=== PATIENT | male | born 1980 | race Caucasian/White ===

== ENCOUNTER 2016-09-20 01:45 | Emergency (ER) | payer MEDICAID ==
[~2016-09-20] VITALS: Ht 166.9 cm; Wt 74.5 kg
[~2016-09-20 01:45] MED LIST: CHOL400T8 PO; MTF1000T PO; MULTI PO
[2016-09-20 02:02] VITALS: Ht 166.9 cm; Wt 74.5 kg
[2016-09-20] MEDS ORDERED: SOD CHLORIDE 0.9% 1,000 ML IV STA (04:10)
--- NOTE | 2016-09-20 05:27 | RADRPT ---
PROCEDURE: XR Chest. CLINICAL INDICATION: Chest pain TECHNIQUE: A single AP view of the chest was obtained. COMPARISON: None. FINDINGS: No focal airspace opacification, pleural effusion or pneumothorax is seen. The cardiomediastinal si lhouette is within normal limits for size. The osseous structures are unremarkable. IMPRESSION: No radiographic evidence of acute cardiopulmonary disease. RPTAT: HH .Violeta Aguiar MD, MD Date Time Electronically viewed and signed by .Violeta Aguiar MD, on 09/20/2016 05:35 .G/
[2016-09-20 05:31] LABS: ALANINE AMINOTRANSFERASE 67 IU/L (13-69); ALBUMIN 4.4 g/dl (3.3-4.9); ALBUMIN/GLOBULIN RATIO 1.25; ALKALINE PHOSPHATASE 110 IU/L (42-121); ANION GAP 11 (8-16); ASPARTATE AMINO TRANSFERASE 69 IU/L (15-46); BILIRUBIN,INDIRECT 0.5 mg/dl (0-1.1); BILIRUBIN,TOTAL 0.5 mg/dl (0.2-1.3); BLOOD UREA NITROGEN 10 mg/dl (7-20); CALCIUM 9.9 mg/dl (8.4-10.2); CARBON DIOXIDE 28 mmol/L (21-31); CHLORIDE 100 mmol/L (97-110); GLUCOSE 103 mg/dl (70-220); POTASSIUM 4.2 mmol/L (3.5-5.1); SODIUM 135 mmol/L (135-144); TOTAL PROTEIN 7.9 g/dl (6.1-8.1)
[2016-09-20 05:36] LABS: ADD SCAN DIFF NO
[2016-09-20 05:43] LABS: B-TYPE NATRIURETIC PEPTIDE 13 PG/ML (0-125); INR 0.88; PROTIME 11.9 Sec (12.2-14.2); PT RATIO 0.9
[2016-09-20 05:44] LABS: PARTIAL THROMBOPLASTIN TIME 26.8 Sec (25.0-35.0)
[2016-09-20 05:55] LABS: BASOPHIL # 0.1 10^3/ul (0.0-0.1); BASOPHILS % 0.5 % (0.0-2.0); EOSINOPHILS # 1.1 10^3/ul (0.0-0.5); EOSINOPHILS % 8.4 % (0.0-7.0); HEMOGLOBIN 17.5 g/dl (14.0-18.0); LYMPHOCYTES # 3.6 10^3/ul (0.8-2.9); LYMPHOCYTES % 28.5 % (15.0-51.0); MEAN CORPUSCULAR HEMOGLOBIN 31.9 pg (29.0-33.0); MEAN CORPUSCULAR HGB CONC 34.3 g/dl (32.0-37.0); MEAN CORPUSCULAR VOLUME 93.1 fl (82.0-101.0); MEAN PLATELET VOLUME 10.2 fl (7.4-10.4); MONOCYTE # 0.9 10^3/ul (0.3-0.9); MONOCYTES % 7.2 % (0.0-11.0); NEUTROPHIL # 6.9 10^3/ul (1.6-7.5); NEUTROPHILS % 54.8 % (39.0-77.0); PLATELET COUNT 285 10^3/UL (140-415); RED BLOOD COUNT 5.48 10^6/ul (4.70-6.10); RED CELL DISTRIBUTION WIDTH 12.6 % (11.5-14.5); TROPONIN-I < 0.012 ng/ml (0.00-0.12); WHITE BLOOD COUNT 12.6 10^3/ul (4.8-10.8)
--- NOTE | 2016-09-20 05:56 | ERD ---
ER Documentation Chief Complaint Date/Time DATE: 09/20/16 TIME: 05:55 Chief Complaint palpiations and dizziness,denies CP, hx diabetes HPI This is a 35-year-old man with palpitations and dizziness. He denies any chest pain. Denies any nausea vomiting fevers or chills. Patient does have a history of diabetes. Denies any other current complaints. Symptoms are going on for 12 hours. ROS All systems reviewed and are negative except as per history of present illness. Medications Home Meds Active Scripts Cholecalciferol (Vitamin D3) 400 Unit Tablet, 800 UNITS PO DAILY for 30 Days, TAB Prov:ALLYN GARZA FRONT CLERK 01/29/16 Multivitamins* (Theragran*) 1 Tab Tab, 1 TAB PO DAILY, #30 TAB Prov:ALLYN GARZA FRONT CLERK 01/29/16 Reported Medications Metformin* (Glucophage*) 1,000 Mg Tablet, 1000 MG PO BID, #60 TAB 05/18/16 Allergies Allergies: Coded Allergies: Pork/Porcine Containing Products (Verified Allergy, Mild, 05/18/16) PMhx/Soc History of Surgery: Yes (appendectomy) Anesthesia Reaction: No Hx Neurological Disorder: No Hx Respiratory Disorders: No Hx Cardiac Disorders: No Hx Psychiatric Problems: No Hx Miscellaneous Medical Probl: No (dm, hx pancreatitis from etoh abuse) Hx Alcohol Use: No (beer every week) Hx Substance Use: No Hx Tobacco Use: No Smoking Status: Never smoker Physical Exam Vitals Vital Signs Date Time Temp Pulse Resp B/P Pulse Ox O2 Delivery O2 Flow Rate FiO2 09/20/16 04:19 65 19 141/92 99 Room Air 09/20/16 02:02 97.2 80 18 152/105 98 Physical Exam Const: [] Head: Atraumatic Eyes: Normal Conjunctiva ENT: Normal External Ears, Nose and Mouth. Neck: Full range of motion..~ No meningismus. Resp: Clear to auscultation bilaterally Cardio: Regular rate and rhythm, no murmurs Abd: Soft, non tender, non distended. Normal bowel sounds Skin: No petechiae or rashes Back: No midline or flank tenderness Ext: No cyanosis, or edema Neur: Awake and alert Psych: Normal Mood and Affect Result Diagram: 09/20/16 0434 Results 24 hrs Laboratory Tests Test 09/20/16 04:34 Prothrombin Time 11.9Sec Prothrombin Time Ratio 0.9 INR International Normalized Ratio 0.88 Activated Partial Thromboplast Time 26.8Sec Sodium Level 135mmol/L Potassium Level 4.2mmol/L Chloride Level 100mmol/L Carbon Dioxide Level 28mmol/L Anion Gap 11 Blood Urea Nitrogen 10mg/dl Creatinine 0.60mg/dl Glucose Level 103mg/dl Calcium Level 9.9mg/dl Total Bilirubin 0.5mg/dl Direct Bilirubin 0.00mg/dl Indirect Bilirubin 0.5mg/dl Aspartate Amino Transf (AST/SGOT) 69IU/L Alanine Aminotransferase (ALT/SGPT) 67IU/L Alkaline Phosphatase 110IU/L Troponin I Pending B-Type Natriuretic Peptide Pending Total Protein 7.9g/dl Albumin 4.4g/dl Globulin 3.50g/dl Albumin/Globulin Ratio 1.25 Lipase 223U/L Current Medications Medications (Trade) Dose Ordered Sig/Kevin Route PRN Reason Start Time Stop Time Status Last Admin Dose Admin Sodium Chloride (NS) 1,000 ml @ 1,000 mls/hr Q1H STAT IV 09/20/16 04:10 09/20/16 05:31 DC 09/20/16 04:40 Procedures/MDM EKG: Rate/Rhythm: Normal Sinus Rhythm QRS, ST, T-waves: No changes consistent w/ acute ischemia Impression: No evidence of ischemia or arrhythmia Chest X-ray 1V Interpreted by me: Soft Tissue: No acute abnormalities Bones: No acute abnormalities Mediastinum/Cardiac Silhouette/Lungs: No acute abnormalities Patient's thoracic symptoms have stabilized while in the department and are stable for outpatient follow up. Exam and work up not consistent w/ ischemia, arrhythmia, PE or dissection. Departure Diagnosis: Primary Impression: Palpitations Condition: Stable SRINATH ELLIS Sep 20, 2016 05:56
[2016-09-20 07:57] VITALS: BP 134/94; PULSE 77; RESP 18; TEMP 97.8
== END 2016-09-20 08:20 | disposition home or self-care (01) ==
LOC: E/R 01:45
DX: R00.2 Palpitations (principal); E11.9 Type 2 diabetes mellitus without complications; R07.9 Chest pain, unspecified; Z79.84 Long term (current) use of oral hypoglycemic drugs
CPT/HCPCS: 36415; 71010; 80053; 83690; 83880; 84484; 85025; 85610; 85730; 93005; 96360; 96361; J7030; Z7502

== ENCOUNTER 2016-12-22 09:02 | Emergency (ER) | payer MEDICAID ==
[~2016-12-22] VITALS: Wt 75.5 kg
[2016-12-22] MEDS ORDERED: morphine 4 MG/ML VIAL IV STA (09:25)
[2016-12-22] MEDS ORDERED: ONDANSETRON 4 MG INJ IV STA (09:25)
[2016-12-22] MEDS ORDERED: SOD CHLORIDE 0.9% 1,000 ML IV STA (09:25)
[2016-12-22 09:49] LABS: ADD SCAN DIFF NO
[2016-12-22 09:56] LABS: ADD UMIC YES; UR ASCORBIC ACID 40 mg/dL (NEGATIVE); UR BILIRUBIN (Dip) NEGATIVE (NEGATIVE); UR BLOOD (Dip) NEGATIVE (NEGATIVE); UR CLARITY CLEAR (CLEAR); UR COLOR YELLOW (YELLOW); UR GLUCOSE (Dip) NEGATIVE (NEGATIVE); UR KETONES (Dip) NEGATIVE (NEGATIVE); UR LEUKOCYTE ESTERASE (Dip) NEGATIVE Leu/ul (NEGATIVE); UR MUCUS FEW /HPF (NONE SEEN); UR NITRITE (Dip) NEGATIVE (NEGATIVE); UR RBC 10 /HPF (0-5); UR TOTAL PROTEIN (Dip) 3+ mg/dl (NEGATIVE); UR UROBILINOGEN (Dip) NEGATIVE (NEGATIVE)
[2016-12-22 10:08] LABS: BASOPHIL # 0.1 10^3/ul (0.0-0.1); BASOPHILS % 0.4 % (0.0-2.0); EOSINOPHILS # 0.4 10^3/ul (0.0-0.5); HEMATOCRIT 46.7 % (42.0-52.0); HEMOGLOBIN 16.5 g/dl (14.0-18.0); LYMPHOCYTES # 2.3 10^3/ul (0.8-2.9); MEAN CORPUSCULAR HEMOGLOBIN 33.5 pg (29.0-33.0); MEAN CORPUSCULAR HGB CONC 35.3 g/dl (32.0-37.0); MEAN CORPUSCULAR VOLUME 94.9 fl (82.0-101.0); MEAN PLATELET VOLUME 10.3 fl (7.4-10.4); MONOCYTE # 0.9 10^3/ul (0.3-0.9); MONOCYTES % 6.5 % (0.0-11.0); NEUTROPHIL # 9.8 10^3/ul (1.6-7.5); NEUTROPHILS % 72.7 % (39.0-77.0); PLATELET COUNT 261 10^3/UL (140-415); RED BLOOD COUNT 4.92 10^6/ul (4.70-6.10); RED CELL DISTRIBUTION WIDTH 13.1 % (11.5-14.5); WHITE BLOOD COUNT 13.5 10^3/ul (4.8-10.8)
[2016-12-22 10:09] LABS: ALBUMIN 4.4 g/dl (3.3-4.9); ALBUMIN/GLOBULIN RATIO 1.12; BILIRUBIN,INDIRECT 0.5 mg/dl (0-1.1); BILIRUBIN,TOTAL 0.5 mg/dl (0.2-1.3); CALCIUM 9.5 mg/dl (8.4-10.2); CREATININE 0.75 mg/dl (0.61-1.24); INR 0.97; POTASSIUM 4.4 mmol/L (3.5-5.1); PROTIME 12.9 Sec (12.2-14.2); TOTAL PROTEIN 8.3 g/dl (6.1-8.1)
[2016-12-22 10:10] LABS: PARTIAL THROMBOPLASTIN TIME 27.7 Sec (25.0-35.0)
[2016-12-22] MEDS ORDERED: KETOROLAC 30 MG INJ IV STA (10:56)
--- NOTE | 2016-12-22 11:14 | RADRPT ---
PROCEDURE: US Abdomen (right upper quadrant). CLINICAL INDICATION: Right upper quadrant abdomen pain. TECHNIQUE: Multiple real-time longitudinal and transverse images of the right upper quadrant of th e abdomen were acquired utilizing a curved array transducer. Images were reviewed on a high-resoluti on PACS workstation. COMPARISON: Right upper quadrant abdomen ultrasound dated 01/27/2016 which was normal. FINDINGS: The liver is normal in size and normal in echogenicity. There is no focal hepatic lesion. There is a polyp posteriorly in the gallbladder measuring 0.4 cm and a second gallbladder polyp kade uring 0.3 cm. There is no gallbladder wall thickening and there are no gallstones or fluid around t he gallbladder. The bile ducts are normal with the common bile duct measuring 5.1 mm in diameter. The visualized portions of the pancreas are unremarkable with obscuration of the tail of the pancrea s. No free fluid is present. The right kidney measures 12.5 cm. There is normal echogenicity of the right kidney. There is no perinephric fluid collection. No hydronephrosis, mass, or calculus is seen. IMPRESSION: 1. Small gallbladder polyps. Follow-up ultrasound in 6 months advised. 2. No gallstones or evidence of cholecystitis. 3. Otherwise normal right upper quadrant abdomen ultrasound. RPTAT: QQ .Roge Pena MD, MD Date Time Electronically viewed and signed by .Roge Pena MD, on 12/22/2016 11:13 .R/
[2016-12-22] MEDS ORDERED: SOD CHLORIDE 0.9% 1,000 ML IV ONE (11:30)
[2016-12-22] MEDS ORDERED: HYDR-906 PO (12:16)
[2016-12-22] MEDS ORDERED: IBUP-1542 PO (12:16)
--- NOTE | 2016-12-22 12:16 | ERD ---
ER Documentation Chief Complaint Date/Time DATE: 12/22/16 Chief Complaint Abdominal pain HPI The patient is a 36-year-old male with a history of type 1 diabetes, dyslipidemia, and pancreatitis, who presents to the Emergency Department with complaint of abdominal pain, nausea, vomiting and diarrhea. The patient reports that his pain developed at 3:00 am this morning. It is localized to the right upper quadrant and epigastric region of the abdomen and radiates to the back. The pain is constant, aching in nature, rated as 10/10 in intensity. The patient reports that his symptoms feel similar to his prior episodes of pancreatitis. He notes that in the past, he was prescribed Prilosec to assist with his symptoms, though did not take any of the Prilosec today. Since onset of his symptoms, he has developed associated nausea, vomiting (4 episodes of nonbilious, nonbloody emesis) and 2 episodes of diarrhea. Otherwise, denies any black or bloody stools. Denies fevers, sweats, chest pain, palpitations, shortness of breath, flank pain, dysuria, polyuria, testicular pain or hematuria. The patient notes that his last episode of pancreatitis was approximately 3 months ago, and the episode prior was 1 year ago. He admits to history of dyslipidemia, though does not take any cholesterol medications. Additionally, he admits to regular alcohol use, though notes that he last drank on Monday. He denies any recent travel, stream water exposure, immunocompromised state, IV drug use, or recent antibiotic use. Denies contacts with similar symptoms. Denies recent reptile or insect bites. ROS All systems reviewed and are negative except as per history of present illness. Medications Home Meds Active Scripts Ondansetron (Zofran Odt) 4 Mg Tab.rapdis, 4 MG PO Q6, #8 Prov:JOANNE GAITAN PA-C 12/22/16 Ibuprofen* (Motrin*) 600 Mg Tab, 600 MG PO Q6, #30 TAB Prov:JOANNE GAITAN PA-C 12/22/16 Hydrocodone/Acetaminophen ([place] 5-325 Tablet) 1 Each Tablet, 1 EACH PO Q4, #12 TAB Prov:JOANNE GAITAN PA-C 12/22/16 Cholecalciferol (Vitamin D3) 400 Unit Tablet, 800 UNITS PO DAILY for 30 Days, TAB Prov:ALLYN GARZA NP 01/29/16 Multivitamins* (Theragran*) 1 Tab Tab, 1 TAB PO DAILY, #30 TAB Prov:ALLYN GARZA [employer] 01/29/16 Reported Medications Metformin* (Glucophage*) 1,000 Mg Tablet, 1000 MG PO BID, #60 TAB 05/18/16 Allergies Allergies: Coded Allergies: Pork/Porcine Containing Products (Verified Allergy, Mild, 09/20/16) PMhx/Soc History of Surgery: Yes (appendectomy) Anesthesia Reaction: No Hx Neurological Disorder: No Hx Respiratory Disorders: No Hx Cardiac Disorders: No Hx Psychiatric Problems: No Hx Miscellaneous Medical Probl: No (diabetes, pancreatitis from etoh abuse) Hx Alcohol Use: Yes (beer every week) Hx Substance Use: No Hx Tobacco Use: No Smoking Status: Never smoker Physical Exam Vitals Vital Signs Date Time Temp Pulse Resp B/P Pulse Ox O2 Delivery O2 Flow Rate FiO2 12/22/16 12:30 98.3 65 18 139/81 99 Room Air 12/22/16 09:04 97.7 70 20 153/97 99 Physical Exam GENERAL: Well-developed, well-nourished, in mild distress secondary to pain. HEENT: Head is normocephalic, atraumatic. No scleral pallor or icterus. Pupils equal, round and reactive to light. Extraocular movements intact. Conjunctiva pink. Dry mucous membranes. NECK: Supple. Full range of motion. RESPIRATORY: Lungs are clear to auscultation bilaterally. Equal breath sounds. Normal expiratory effort. CARDIOVASCULAR: Regular rate and rhythm. S1 and S2 normal. No murmurs, rubs, or gallops. GASTROINTESTINAL: Abdomen is soft and nondistended. Moderate tenderness to palpation over the right upper quadrant and epigastric region of the abdomen. No guarding, no rebound tenderness. Normal bowel sounds. Negative Robbins's sign. Negative Abhishek and Wagner signs. No tenderness at McBurney's point. No pulsatile abdominal masses. FLANK: No CVA tenderness, no mass or swelling. BACK: No midline tenderness. EXTREMITIES: No clubbing, cyanosis, or edema. Normal skin perfusion. Moving all extremities. Muscle tone is normal. No focal swelling or erythema. Distal pulses are palpable, 2+ bilaterally. Capillary refill is less than 2 seconds. NEUROLOGIC: The patient is alert, awake, and oriented x 3. No focal neurologic deficits. INTEGUMENT: Skin is clean, dry and intact. No rashes, lesions or petechiae present. PSYCHIATRIC: Appropriate; Cooperative. Result Diagram: 12/22/1642 12/22/1642 Results 24 hrs Laboratory Tests Test 12/22/16 09:42 White Blood Count 13.510^3/ul Red Blood Count 4.9210^6/ul Hemoglobin 16.5g/dl Hematocrit 46.7% Mean Corpuscular Volume 94.9fl Mean Corpuscular Hemoglobin 33.5pg Mean Corpuscular Hemoglobin Concent 35.3g/dl Red Cell Distribution Width 13.1% Platelet Count 63810^3/UL Mean Platelet Volume 10.3fl Neutrophils % 72.7% Lymphocytes % 17.0% Monocytes % 6.5% Eosinophils % 3.0% Basophils % 0.4% Nucleated Red Blood Cells % 0.0/100WBC Neutrophils # 9.810^3/ul Lymphocytes # 2.310^3/ul Monocytes # 0.910^3/ul Eosinophils # 0.410^3/ul Basophils # 0.110^3/ul Nucleated Red Blood Cells # 0.010^3/ul Prothrombin Time 12.9Sec Prothrombin Time Ratio 1.0 INR International Normalized Ratio 0.97 Activated Partial Thromboplast Time 27.7Sec Urine Color YELLOW Urine Clarity CLEAR Urine pH 6.0 Urine Specific [place] 1.020 Urine Ketones NEGATIVEmg/dL Urine Nitrite NEGATIVEmg/dL Urine Bilirubin NEGATIVEmg/dL Urine Urobilinogen NEGATIVEmg/dL Urine Leukocyte Esterase NEGATIVELeu/ul Urine Microscopic RBC 10/HPF Urine Microscopic WBC 1/HPF Urine Mucus FEW/HPF Urine Hemoglobin NEGATIVEmg/dL Urine Glucose NEGATIVEmg/dL Urine Total Protein 3+mg/dl Sodium Level 143mmol/L Potassium Level 4.4mmol/L Chloride Level 99mmol/L Carbon Dioxide Level 25mmol/L Anion Gap 23 Blood Urea Nitrogen 9mg/dl Creatinine 0.75mg/dl Glucose Level 120mg/dl Calcium Level 9.5mg/dl Total Bilirubin 0.5mg/dl Direct Bilirubin 0.00mg/dl Indirect Bilirubin 0.5mg/dl Aspartate Amino Transf (AST/SGOT) 103IU/L Alanine Aminotransferase (ALT/SGPT) 120IU/L Alkaline Phosphatase 106IU/L Total Protein 8.3g/dl Albumin 4.4g/dl Globulin 3.90g/dl Albumin/Globulin Ratio 1.12 Amylase Level 137U/L Lipase 726U/L Current Medications Medications (Trade) Dose Ordered Sig/Kevin Route PRN Reason Start Time Stop Time Status Last Admin Dose Admin Sodium Chloride (NS) 1,000 ml @ 1,000 mls/hr Q1H STAT IV 12/22/16 09:25 12/22/16 10:24 DC 12/22/16 09:53 Morphine Sulfate (morphine) 4 mg ONCE STAT IV 12/22/16 09:25 12/22/16 09:27 DC 12/22/16 09:45 Ondansetron HCl (Zofran Inj) 4 mg ONCE STAT IV 12/22/16 09:25 12/22/16 09:27 DC 12/22/16 09:46 Ketorolac Tromethamine 30 mg 30 mg ONCE STAT IV 12/22/16 10:56 12/22/16 10:57 DC 12/22/16 11:09 Sodium Chloride (NS) 1,000 ml @ 1,000 mls/hr Q1H ONCE IV 12/22/16 11:30 12/22/16 12:29 DC 12/22/16 11:19 Procedures/MDM DIAGNOSTIC TESTS AND INTERPRETATION: PROCEDURE: US Abdomen (right upper quadrant). CLINICAL INDICATION: Right upper quadrant abdomen pain. TECHNIQUE: Multiple real-time longitudinal and transverse images of the right upper quadrant of the abdomen were acquired utilizing a curved array transducer. Images were reviewed on a high-resolution PACS workstation. COMPARISON: Right upper quadrant abdomen ultrasound dated 01/27/2016 which was normal. FINDINGS: The liver is normal in size and normal in echogenicity. There is no focal hepatic lesion. There is a polyp posteriorly in the gallbladder measuring 0.4 cm and a second gallbladder polyp measuring 0.3 cm. There is no gallbladder wall thickening and there are no gallstones or fluid around the gallbladder. The bile ducts are normal with the common bile duct measuring 5.1 mm in diameter. The visualized portions of the pancreas are unremarkable with obscuration of the tail of the pancreas. No free fluid is present. The right kidney measures 12.5 cm. There is normal echogenicity of the right kidney. There is no perinephric fluid collection. No hydronephrosis, mass, or calculus is seen. IMPRESSION: 1. Small gallbladder polyps. Follow-up ultrasound in 6 months advised. 2. No gallstones or evidence of cholecystitis. 3. Otherwise normal right upper quadrant abdomen ultrasound. .Roge Pena MD, Date Time Electronically viewed and signed by .Roge Pena MD, on 12/22/2016 11:13 EMERGENCY DEPARTMENT COURSE: The patient was stable throughout the ED course. IV access established by nursing staff. Fluids, Morphine, Zofran and Toradol administered for symptomatic control. Laboratory work and ultrasound imaging performed. On reevaluation, the patient reports no new complaints and decreased pain. Patient offered admission to the hospital, given elevated lipase, history of pancreatitis, and clinical presentation concerning for recurrent acute pancreatitis. However, patient notes that he is currently pain-free, and feels significantly improved from initial presentation to the Emergency Department. He requests discharge home with medications for symptomatic control, and agrees to return to the ED for any new, recurrent or concerning symptoms. This was discussed with Dr. Roman, ED attending/supervising physician, who agrees with management and plan. MEDICAL DECISION MAKING: This is a 36-year-old male presenting to the Emergency Department with abdominal pain, nausea, vomiting and diarrhea since 3:00 am this morning. The patient has a known history of pancreatitis, and states that his current symptoms feel similar. On physical examination, he had tenderness to palpation over the right upper quadrant and epigastrium of the abdomen, with negative Robbins's sign. Otherwise, no guarding, no rebound tenderness. Vital signs were stable. The differential diagnosis includes, but is not limited to, ileus, volvulus, incarcerated hernia, GERD, PUD, viral illness, gastroenteritis , infectious diarrhea, food allergy, bowel obstruction, inflammatory bowel disease, peritonitis, appendicitis, gastritis, cholecystitis, pancreatitis, perforated viscus, mesenteric ischemia, diverticulitis. Laboratory analysis revealed leukocytosis of 13.5. Lipase elevated 726, consistent with acute pancreatitis. Transaminitis noted, possibly secondary to history of alcohol use. Ultrasound with no evidence of cholelithiasis, cholecystitis, gallstone pancreatitis. After rest and administration of Morphine, Toradol, Zofran and fluids, the patient reports no new complaints. He has had no episodes of emesis or diarrhea while in the emergency department. Upon my review and interpretation of the patient's presentation, clinical data, and overall ER course, I believe the patient's symptoms are most consistent with acute pancreatitis. Patient strongly advised to abstain from any alcohol use. He was offered admission to the hospital, but declined, as his pain was controlled and he was able to tolerate POs with no difficulty. Doubt dysentery as the patient has no blood in stools. Doubt C. diff, as the patient has no recent antibiotic use. Doubt traveler's diarrhea, patient has had no recent travel. Doubt parasitic infection, patient has had no stream water or immunocompromised status. Doubt cholecystitis, no evidence on US, negative Robbins's sign. Doubt perforated ulcer, patient has a non-surgical abdomen. Doubt small bowel obstruction, patient is passing flatus, abdomen is non- distended. Doubt appendicitis, patient has no McBurney's point tenderness, no guarding, no tenderness over the RLQ. Doubt diverticulitis, exam inconsistent. Doubt ischemic bowel, no pain out of proportion to examination. Doubt torsion , symptoms and examination inconsistent. At this time, the patient is in stable condition and therefore can be discharged home with a prescriptions for [place], Ibuprofen and Zofran and strict return precautions for signs of deteriorating or worsening condition. The patient is advised to follow up with their primary medical provider within 1-2 days for reevaluation and further management, or return to the ER sooner for any worsening symptoms, including inability to tolerate POs, recurrent/ worsening abdominal pain, altered mental status, neck pain/stiffness, persistent vomiting, persistent fevers greater than 100.4 F, or any other concerning symptoms. I shared my medical decision making and plan with the patient at length and in great detail, and he verbally understands and agrees with the plan for further observation and care as an outpatient. At the time of discharge, all questions were answered. Departure Diagnosis: Primary Impression: Acute pancreatitis Pancreatitis type: unspecified pancreatitis type Acute pancreatitis complication: unspecified Qualified Code: K85.90 - Acute pancreatitis, unspecified complication status, unspecified pancreatitis type Condition: Stable Patient Instructions: Pancreatitis, Understanding Pancreatitis Additional Instructions: Llame al doctor RIP y fawad dorian TERE PARA DENTRO DE 1-2 MONTOYA.Dgale a la secretaria que nosotros le instruimos hacer esta tere.Avise o llame si sung condicin se empeora antes de la tere. Regresa aqui si peor o no mejor. JOANNE GAITAN PA-C Dec 22, 2016 12:16 JOANNE GAITAN PA-C Dec 22, 2016 12:16
[2016-12-22 12:30] VITALS: BP 139/81; PULSE 65; RESP 18; TEMP 98.3
[2016-12-22] MEDS ORDERED: ONDA4TAB11 PO (12:54)
== END 2016-12-22 13:40 | disposition home or self-care (01) ==
LOC: FTE 09:02
DX: K85.90 Acute pancreatitis without necrosis or infection, unspecified (principal); E10.9 Type 1 diabetes mellitus without complications; Z79.84 Long term (current) use of oral hypoglycemic drugs
CPT/HCPCS: 76705; 80053; 81001; 82150; 83690; 85025; 85610; 85730; J1885; J2270; J2405; J7030; 36415; 96374; 96375

== ENCOUNTER 2016-12-22 16:25 | Emergency (ER) | payer MEDICAID, OTHER ==
[~2016-12-22] VITALS: Wt 74.5 kg
[~2016-12-22 16:25] MED LIST changes: +HYDR-906 PO; +IBUP-1542 PO; +ONDA4TAB11 PO
--- NOTE | 2016-12-22 16:55 | ERD ---
ER Documentation Chief Complaint Date/Time DATE: 12/22/16 TIME: 16:54 Chief Complaint ruq pain rad into back, seen here earlier for same HPI This French-speaking 36-year-old male patient presents to emergency department for reevaluation of right upper quadrant pain. Patient was seen this morning diagnosed with pancreatitis after full evaluation including laboratory testing, lipase 726, amylase 137, AST 103, ALT 120. WBC 13.5. Patient was sent home with [place], Motrin, Zofran, and Prilosec. Patient has medication with him, reports pain unclear if he has been taking medication or started medication as prescribed. Chart review PROCEDURE: US Abdomen (right upper quadrant). CLINICAL INDICATION: Right upper quadrant abdomen pain. TECHNIQUE: Multiple real-time longitudinal and transverse images of the right upper quadrant of the abdomen were acquired utilizing a curved array transducer. Images were reviewed on a high-resolution PACS workstation. COMPARISON: Right upper quadrant abdomen ultrasound dated 01/27/2016 which was normal. FINDINGS: The liver is normal in size and normal in echogenicity. There is no focal hepatic lesion. There is a polyp posteriorly in the gallbladder measuring 0.4 cm and a second gallbladder polyp measuring 0.3 cm. There is no gallbladder wall thickening and there are no gallstones or fluid around the gallbladder. The bile ducts are normal with the common bile duct measuring 5.1 mm in diameter. The visualized portions of the pancreas are unremarkable with obscuration of the tail of the pancreas. No free fluid is present. The right kidney measures 12.5 cm. There is normal echogenicity of the right kidney. There is no perinephric fluid collection. No hydronephrosis, mass, or calculus is seen. IMPRESSION: 1. Small gallbladder polyps. Follow-up ultrasound in 6 months advised. 2. No gallstones or evidence of cholecystitis. 3. Otherwise normal right upper quadrant abdomen ultrasound. RPTAT: QQ .Roge Pena MD, MD Date Time Electronically viewed and signed by .Roge Pena MD, MD on 12/22/2016 11:13 ROS All systems reviewed and are negative except as per history of present illness. Medications Home Meds Active Scripts Ondansetron (Zofran Odt) 4 Mg Tab.rapdis, 4 MG PO Q6, #8 Prov:JOANNE GAITAN PA-C 12/22/16 Ibuprofen* (Motrin*) 600 Mg Tab, 600 MG PO Q6, #30 TAB Prov:JOANNE GAITAN PA-C 12/22/16 Hydrocodone/Acetaminophen ([place] 5-325 Tablet) 1 Each Tablet, 1 EACH PO Q4, #12 TAB Prov:JOANNE GAITAN PA-C 12/22/16 Cholecalciferol (Vitamin D3) 400 Unit Tablet, 800 UNITS PO DAILY for 30 Days, TAB Prov:ALLYN GARZA NP 01/29/16 Multivitamins* (Theragran*) 1 Tab Tab, 1 TAB PO DAILY, #30 TAB Prov:ALLYN GARZA NP 01/29/16 Reported Medications Metformin* (Glucophage*) 1,000 Mg Tablet, 1000 MG PO BID, #60 TAB 05/18/16 Allergies Allergies: Coded Allergies: Pork/Porcine Containing Products (Verified Allergy, Mild, 09/20/16) PMhx/Soc History of Surgery: Yes (appendectomy) Anesthesia Reaction: No Hx Neurological Disorder: No Hx Respiratory Disorders: No Hx Cardiac Disorders: No Hx Psychiatric Problems: No Hx Miscellaneous Medical Probl: No (diabetes, pancreatitis from etoh abuse) Hx Alcohol Use: Yes (beer every week) Hx Substance Use: No Hx Tobacco Use: No Physical Exam Vitals Vital Signs Date Time Temp Pulse Resp B/P Pulse Ox O2 Delivery O2 Flow Rate FiO2 12/22/16 18:47 98.1 70 20 129/68 99 Room Air 12/22/16 16:26 97.2 72 20 162/99 98 Vitals stable, triage notes reviewed Physical Exam Const: Well-appearing, well-hydrated, well-nourished, no acute distress Head: Atraumatic Eyes: Normal Conjunctiva PERRLA, EOMI ENT: Normal External Ears, Nose and Mouth mucous membranes moist. Neck: Resp: Respirations even and unlabored, no respiratory Cardio: Regular rate and rhythm, no murmurs Abd: Abdomen symmetric, soft, tympanic to percussion, negative Robbins sign, no rebound tenderness, and reproducible epigastric pain. Skin: No petechiae or rashes Back: No midline or flank tenderness Ext: Neur: Awake and alert Psych: Normal Mood and Affect Results 24 hrs Current Medications Medications (Trade) Dose Ordered Sig/Kevin Route PRN Reason Start Time Stop Time Status Last Admin Dose Admin Sodium Chloride (NS) 1,000 ml @ 1,000 mls/hr Q1H STAT IV 12/22/16 17:02 12/22/16 18:01 DC 12/22/16 17:23 Morphine Sulfate (morphine) 4 mg ONCE STAT IV 12/22/16 17:02 12/22/16 17:04 DC 12/22/16 17:23 Ondansetron HCl (Zofran Inj) 4 mg ONCE STAT IV 12/22/16 17:02 12/22/16 17:04 DC 12/22/16 17:23 Ketorolac Tromethamine (Toradol) 15 mg ONCE STAT IV 12/22/16 17:02 12/22/16 17:04 DC 12/22/16 17:23 Procedures/MDM This 36-year-old male patient presents to emergency department for pain control. Patient has pancreatitis seen earlier today discharged home with pain medication, Zofran and PPI treatment instructed to follow-up with primary care physician. Patient reports that he tried to go to work but was unable to because of pain. Patient admits to daily drinking alcohol, denies any alcohol consumption today. This case discussed with supervising physician . Patient will receive treatment for pain with 4 mg of morphine,, IV hydration with 1 L of normal saline, and Zofran for nausea with improvement of symptoms. Alcohol cessation discussed. Patient will be discharged home with instructions to continue current plan with Motrin, [place], Zofran, and Prilosec, follow-up with primary care physician, I feel the patient is stable for discharge at this time. I have discussed results, examination findings, the treatment plan with the patient and family present prior to discharge. Indications for emergent reevaluation, side effects of medication were also discussed. All questions were answered. Patient verbalizes understanding and agrees with plan of care. Departure Diagnosis: Primary Impression: Pancreatitis Chronicity: acute Pancreatitis type: alcohol induced Acute pancreatitis complication: no infection or necrosis Qualified Code: K85.20 - Alcohol- induced acute pancreatitis without infection or necrosis Condition: Good Patient Instructions: Acute Pancreatitis Additional Instructions: Thank you for for coming to [facility] for your care today. Please ask your nurse or provider if you have questions about your care today and do not leave until all your questions have been answered. Please use any medications given as directed and follow-up with your doctor (or the doctor you were referred to) in the next 2-3 days. If you do not have a primary care doctor you may follow up at the [facility] (listed below). You may also use motrin and tylenol as needed for fever and/or pain unless instructed otherwise by your provider or nurse. Indications for more urgent follow-up have been discussed, but you may return to the Emergency Department at ANY time for any worrisome or worsening symptoms. If you have abdominal pain, please know that no test or exam you received is perfect and you should follow up within 8 hours for continued pain. If you had any imaging studies today, such as an X-Ray or CT Scan, these studies will be reviewed later by a radiologist. You will be called if there are important findings that were not identified today, so make sure the contact information you provided at registration is correct. If you received any narcotic pain control medicine today, such as Vicodin, Morphine or Dilaudid, your coordination and judgment may be affected for a number of hours. Please do not drive or operate heavy machinery, and you may want someone to assist you at home. If you were given a prescription for narcotic medication, be aware that it is very addictive- use sparingly and only if necessary. SARA NG Dec 22, 2016 16:55
[2016-12-22] MEDS ORDERED: SOD CHLORIDE 0.9% 1,000 ML IV STA (17:02)
[2016-12-22] MEDS ORDERED: ONDANSETRON 4 MG INJ IV STA (17:02)
[2016-12-22] MEDS ORDERED: morphine 4 MG/ML VIAL IV STA (17:02)
[2016-12-22] MEDS ORDERED: KETOROLAC 15 MG INJ IV STA (17:02)
[2016-12-22 18:47] VITALS: BP 129/68; PULSE 70; RESP 20; TEMP 98.1
== END 2016-12-22 18:48 | disposition home or self-care (01) ==
LOC: FTE 16:25
DX: K85.20 Alcohol induced acute pancreatitis without necrosis or infection (principal); E11.9 Type 2 diabetes mellitus without complications; Z79.84 Long term (current) use of oral hypoglycemic drugs
CPT/HCPCS: J1885; J2270; J2405; J7030; 96374; 96375

== ENCOUNTER 2017-04-22 10:15 | Emergency (ER) | payer MEDICAID, OTHER ==
[~2017-04-22] VITALS: Ht 165.1 cm; Wt 74.6 kg
[2017-04-22 10:17] VITALS: Ht 165.1 cm; Wt 74.6 kg
--- NOTE | 2017-04-22 10:44 | RADRPT ---
PROCEDURE: XR Chest. CLINICAL INDICATION: Chest pain TECHNIQUE: Single portable view of the chest was obtained. COMPARISON: 09/20/2016 FINDINGS: Cardiac/vascular structures: Normal cardiomediastinal silhouette. Pulmonary: Lungs are clear. No pleural effusion. No evidence of pneumothorax. Osseous structures: Normal Soft tissues: Normal IMPRESSION: No acute cardiopulmonary disease. RPTAT:AAJJ Physician Susana Date Time Electronically viewed and signed by Augustine Mccain Physician on 04/22/2017 10:44 /
[2017-04-22] MEDS ORDERED: ALBU2.5V3 NEB (11:00)
[2017-04-22] MEDS ORDERED: ASPI81TA3 PO (11:00)
[2017-04-22] MEDS ORDERED: IBUP-1542 PO (11:01)
--- NOTE | 2017-04-22 12:43 | ERD ---
ER Documentation Chief Complaint Chief Complaint Complains of chest pain since this am HPI Patient is a 36-year-old male with diabetes who presents with chest pain. The chest pain "feels hot" and is in the midsternal area. He has had some shortness of breath. Started 2 days ago. The pain comes and goes and lasts minutes at a time. He tried aspirin this morning. Upon review of old medical records this is the patient's seventh visit to the ER since January 2016. His primary doctor is Dr. Zelaya. ROS All systems reviewed and are negative except as per history of present illness. Medications Home Meds Active Scripts Ibuprofen* (Motrin*) 600 Mg Tab, 600 MG PO Q6H Y for PAIN AND OR ELEVATED TEMP, #30 TAB Prov:ELISHA REIS MD 04/22/17 Reported Medications Aspirin* (Aspirin* Chew) 81 Mg Tab.chew, 81 MG PO DAILY, TAB.CHEW 04/22/17 Albuterol Sulfate* (Albuterol Sulfate* Neb) 0.083%-3 Ml Neb, 2.5 MG NEB Q3H Y for WHEEZING AND SOB, #30 VIAL 04/22/17 Metformin* (Glucophage*) 1,000 Mg Tablet, 1000 MG PO BID, #60 TAB 05/18/16 Discontinued Scripts Ondansetron (Zofran Odt) 4 Mg Tab.rapdis, 4 MG PO Q6, #8 Prov:JOANNE GAITAN PA-C 12/22/16 Ibuprofen* (Motrin*) 600 Mg Tab, 600 MG PO Q6, #30 TAB Prov:JOANNE GAITAN PA-C 12/22/16 Hydrocodone/Acetaminophen ([place] 5-325 Tablet) 1 Each Tablet, 1 EACH PO Q4, #12 TAB Prov:JOANNE GAITAN PA-C 12/22/16 Cholecalciferol (Vitamin D3) 400 Unit Tablet, 800 UNITS PO DAILY for 30 Days, TAB Prov:ALLYN GARZA NP 01/29/16 Multivitamins* (Theragran*) 1 Tab Tab, 1 TAB PO DAILY, #30 TAB Prov:ALLYN GARZA NP 01/29/16 Allergies Allergies: Coded Allergies: Pork/Porcine Containing Products (Verified Allergy, Mild, 04/22/17) PMhx/Soc History of Surgery: Yes (appendectomy) Anesthesia Reaction: No Hx Neurological Disorder: No Hx Respiratory Disorders: No Hx Cardiac Disorders: No Hx Psychiatric Problems: No Hx Miscellaneous Medical Probl: No (diabetes, pancreatitis from etoh abuse) Hx Alcohol Use: Yes (beer every week) Hx Substance Use: No Hx Tobacco Use: No Smoking Status: Never smoker FmHx Family History: No coronary disease Physical Exam Vitals Vital Signs Date Time Temp Pulse Resp B/P Pulse Ox O2 Delivery O2 Flow Rate FiO2 04/22/17 10:17 98.7 90 20 129/85 100 Physical Exam Const: No acute distress Head: Atraumatic Eyes: Normal Conjunctiva ENT: Normal External Ears, Nose and Mouth. Neck: Full range of motion..~ No meningismus. Resp: Clear to auscultation bilaterally Cardio: Regular rate and rhythm, no murmurs Abd: Soft, non tender, non distended. Normal bowel sounds Skin: No petechiae or rashes Back: No midline or flank tenderness Ext: No cyanosis, or edema, 2+ pulses in the bilateral radials Neur: Awake and alert Psych: Normal Mood and Affect Procedures/MDM EKG read by me: Rate/Rhythm: Regular rate and rhythm at a normal rate Intervals: Normal Impression: No evidence of ischemia or arrhythmia Chest x-ray negative per radiology. Patient is a 36-year-old male presents with chest pain. He had chest pain which lasted minutes and felt like a burning type pain. His EKG shows no signs of ischemia. Chest x-ray is negative. At this point I doubt acute coronary syndrome, pneumonia, pneumothorax, pulmonary embolism, or aortic dissection. Patient is well-appearing upon discharge. I believe outpatient management is appropriate and the patient can use ibuprofen as needed for pain. He can return for any worsening symptoms. He should follow-up with his primary doctor within 24-48 hours. Departure Diagnosis: Primary Impression: Chest pain Chest pain type: unspecified Qualified Code: R07.9 - Chest pain, unspecified type Condition: Fair Patient Instructions: Chest Pain, Uncertain Cause Referrals: Your doctor Additional Instructions: Llame al doctor MAANA y fawad dorian TERE PARA DENTRO DE 1-2 MONTOYA.Dgale a la secretaria que nosotros le instruimos hacer esta tere.Avise o llame si sung condicin se empeora antes de la tere. Regresa aqui si peor o no mejor. ELISHA REIS MD Apr 22, 2017 12:43
== END 2017-04-22 12:26 | disposition home or self-care (01) ==
LOC: E/R 10:15
DX: R07.9 Chest pain, unspecified (principal); E11.9 Type 2 diabetes mellitus without complications; Z79.84 Long term (current) use of oral hypoglycemic drugs; Z79.82 Long term (current) use of aspirin
CPT/HCPCS: 71010; Z7502

== ENCOUNTER 2017-05-04 14:49 | Emergency (ER) | payer MEDICAID ==
[~2017-05-04] VITALS: Wt 74.1 kg
[~2017-05-04 14:49] MED LIST changes: +ALBU2.5V3 NEB; +ASPI81TA3 PO; -CHOL400T8 PO; -HYDR-906 PO; -MULTI PO; -ONDA4TAB11 PO
[2017-05-04 16:11] LABS: BASOPHIL # 0.1 10^3/ul (0.0-0.1); BASOPHILS % 0.7 % (0.0-2.0); EOSINOPHILS # 0.3 10^3/ul (0.0-0.5); EOSINOPHILS % 3.1 % (0.0-7.0); HEMATOCRIT 44.2 % (42.0-52.0); HEMOGLOBIN 15.4 g/dl (14.0-18.0); LYMPHOCYTES # 1.8 10^3/ul (0.8-2.9); LYMPHOCYTES % 16.4 % (15.0-51.0); MEAN CORPUSCULAR HEMOGLOBIN 32.7 pg (29.0-33.0); MEAN CORPUSCULAR HGB CONC 34.8 g/dl (32.0-37.0); MEAN CORPUSCULAR VOLUME 93.8 fl (82.0-101.0); MEAN PLATELET VOLUME 10.5 fl (7.4-10.4); MONOCYTE # 0.7 10^3/ul (0.3-0.9); MONOCYTES % 6.6 % (0.0-11.0); NEUTROPHIL # 7.9 10^3/ul (1.6-7.5); NEUTROPHILS % 72.4 % (39.0-77.0); PLATELET COUNT 250 10^3/UL (140-415); RED BLOOD COUNT 4.71 10^6/ul (4.70-6.10); RED CELL DISTRIBUTION WIDTH 12.8 % (11.5-14.5); WHITE BLOOD COUNT 10.9 10^3/ul (4.8-10.8)
[2017-05-04 16:38] LABS: ALANINE AMINOTRANSFERASE 115 IU/L (13-69); ALBUMIN 4.6 g/dl (3.3-4.9); ALBUMIN/GLOBULIN RATIO 1.27; ALKALINE PHOSPHATASE 113 IU/L (42-121); ANION GAP 16 (8-16); ASPARTATE AMINO TRANSFERASE 124 IU/L (15-46); BILIRUBIN,INDIRECT 0.7 mg/dl (0-1.1); BILIRUBIN,TOTAL 0.7 mg/dl (0.2-1.3); BLOOD UREA NITROGEN 6 mg/dl (7-20); CALCIUM 9.5 mg/dl (8.4-10.2); CARBON DIOXIDE 27 mmol/L (21-31); CHLORIDE 101 mmol/L (97-110); CREATININE 0.77 mg/dl (0.61-1.24); GLUCOSE 120 mg/dl (70-220); POTASSIUM 3.5 mmol/L (3.5-5.1); SODIUM 140 mmol/L (135-144); TOTAL PROTEIN 8.2 g/dl (6.1-8.1)
--- NOTE | 2017-05-04 16:41 | RADRPT ---
PROCEDURE: XR Chest. CLINICAL INDICATION: Chest pain. TECHNIQUE: PA view of the chest. COMPARISON: No prior Chest x-ray FINDINGS: The cardiomediastinal silhouette is within normal limits of size. The lungs are clear without pleur al effusion or focal consolidation. No pneumothorax. The osseous structures and soft tissues are unr emarkable. IMPRESSION: 1. No evidence for active cardiopulmonary disease. RPTAT:AAJJ Cheryl Lama Physician Date Time Electronically viewed and signed by Cheryl Lama Physician on 05/04/2017 16:40 RUTH/
[2017-05-04 16:57] LABS: TROPONIN-I < 0.012 ng/ml (0.00-0.12)
[2017-05-04] MEDS ORDERED: NAPR-260 PO (17:24)
--- NOTE | 2017-05-04 18:44 | ERD ---
ER Documentation Chief Complaint Chief Complaint PALPITATIONS WHILE AT WORK, NO SOB HPI This is a 36-year-old male presents to the ER stating that he began to feel palpitations while he was at work. Patient states that he felt shaky and felt that his hands and the nose were tingly. He also experienced blurry vision and felt very sweaty. He complains of chest pain shortness of breath. Patient states that chest pain is described as chest pressure, it is nonradiating. Chest pain has resolved however he still feels shaky. He has a past medical history of type 1 diabetes and pancreatitis. He takes metformin for his diabetes. Patient denies any headaches he denies any vision loss. Patient denies any fevers or chills. He denies any IV drug use. He has not had any recent dental work. Denies any abdominal pain or back pain. Patient has not had any recent travel he denies any leg redness or leg swelling. ROS 12 point review of systems was done, all negative except per HPI. Medications Home Meds Active Scripts Naproxen* (Naprosyn*) 500 Mg Tablet, 500 MG PO BID Y for PAIN AND/OR INFLAMMATION, #30 TAB Prov:ANAND PARKER 05/04/17 Ibuprofen* (Motrin*) 600 Mg Tab, 600 MG PO Q6H Y for PAIN AND OR ELEVATED TEMP, #30 TAB Prov:ELISHA REIS MD 04/22/17 Reported Medications Aspirin* (Aspirin* Chew) 81 Mg Tab.chew, 81 MG PO DAILY, TAB.CHEW 04/22/17 Albuterol Sulfate* (Albuterol Sulfate* Neb) 0.083%-3 Ml Neb, 2.5 MG NEB Q3H Y for WHEEZING AND SOB, #30 VIAL 04/22/17 Metformin* (Glucophage*) 1,000 Mg Tablet, 1000 MG PO BID, #60 TAB 05/18/16 Allergies Allergies: Coded Allergies: Pork/Porcine Containing Products (Verified Allergy, Mild, 05/04/17) PMhx/Soc History of Surgery: Yes (appendectomy) Anesthesia Reaction: No Hx Neurological Disorder: No Hx Respiratory Disorders: No Hx Cardiac Disorders: No Hx Psychiatric Problems: No Hx Miscellaneous Medical Probl: No (diabetes, pancreatitis from etoh abuse) Hx Alcohol Use: Yes (beer every week) Hx Substance Use: No Hx Tobacco Use: No Smoking Status: Never smoker Physical Exam Vitals Vital Signs Date Time Temp Pulse Resp B/P Pulse Ox O2 Delivery O2 Flow Rate FiO2 05/04/17 14:53 97.6 87 17 127/86 98 Physical Exam GENERAL: The patient is well developed and appropriate for usual state of health , in no apparent distress. HEENT: Atraumatic. Conjunctivae are pink. Pupils equal, round, and reactive to light. Extraocular muscles are grossly intact. Bilateral tympanic membranes are clear with no evidence of erythema, effusion or dulling of the light reflex. The oropharynx is clear with no erythema or exudates. NECK: C-spine is soft and supple. There is no cervical lymphadenopathy. CHEST: Clear to auscultation bilaterally. There are no rales, wheezes or rhonchi. HEART: Regular rate and rhythm. No murmurs, clicks, rubs or gallops. ABDOMEN: Soft, nontender and nondistended. Good bowel sounds. No rebound or guarding. No gross peritonitis. No gross organomegaly or masses. No Robbins sign or McBurney point tenderness. No pulsatile masses. BACK: No midline or flank tenderness. EXTREMITIES: Equal pulses bilaterally. There is no peripheral clubbing, cyanosis or edema. No focal swelling or erythema. Full range of motion. Grossly neurovascularly intact. NEURO: Alert and oriented. Cranial nerves II through XII are intact. Motor strength in all 4 extremities with 5/5 strength. Sensation grossly intact. Normal speech and gait. SKIN: There is no apparent rash or petechia. The skin is warm and dry. Result Diagram: 05/04/17 1545 05/04/17 1545 Results 24 hrs Laboratory Tests Test 05/04/17 15:45 White Blood Count 10.910^3/ul Red Blood Count 4.7110^6/ul Hemoglobin 15.4g/dl Hematocrit 44.2% Mean Corpuscular Volume 93.8fl Mean Corpuscular Hemoglobin 32.7pg Mean Corpuscular Hemoglobin Concent 34.8g/dl Red Cell Distribution Width 12.8% Platelet Count 59287^3/UL Mean Platelet Volume 10.5fl Neutrophils % 72.4% Lymphocytes % 16.4% Monocytes % 6.6% Eosinophils % 3.1% Basophils % 0.7% Nucleated Red Blood Cells % 0.0/100WBC Neutrophils # 7.910^3/ul Lymphocytes # 1.810^3/ul Monocytes # 0.710^3/ul Eosinophils # 0.310^3/ul Basophils # 0.110^3/ul Nucleated Red Blood Cells # 0.010^3/ul Sodium Level 140mmol/L Potassium Level 3.5mmol/L Chloride Level 101mmol/L Carbon Dioxide Level 27mmol/L Anion Gap 16 Blood Urea Nitrogen 6mg/dl Creatinine 0.77mg/dl Glucose Level 120mg/dl Calcium Level 9.5mg/dl Total Bilirubin 0.7mg/dl Direct Bilirubin 0.00mg/dl Indirect Bilirubin 0.7mg/dl Aspartate Amino Transf (AST/SGOT) 124IU/L Alanine Aminotransferase (ALT/SGPT) 115IU/L Alkaline Phosphatase 113IU/L Troponin I < 0.012ng/ml Total Protein 8.2g/dl Albumin 4.6g/dl Globulin 3.60g/dl Albumin/Globulin Ratio 1.27 Lipase 221U/L Procedures/MDM EKG was done and read by 84bpm no ST elevation or t wave inversion Differential diagnosis includes but is not limited to; STEMI, dissection, pneumothorax, PE, esophageal rupture, tamponade, pneumonia, pericarditis, GERD, musculoskeletal, endocarditis, anxiety. Time etiology of chest pain is unknown , however suspicion for acute cardiac etiology is low. Patient's heart score is 1. Suspicion for pulmonary embolism is low, patient does not have any PERC criteria. Afebrile and well-appearing. His physical examination is benign with no evidence of murmurs. I doubt endocarditis. Suspicion for pericarditis or tamponade is low. Be sent home with naproxen. He is to follow-up with his primary care doctor within 1-2 days return to ER sooner if symptoms worsen. Medical decision making sure with the patient understands and agrees with plan. Departure Diagnosis: Primary Impression: Chest pain Condition: Stable Patient Instructions: Chest Pain, Uncertain Cause Additional Instructions: Call your primary care doctor TOMORROW for an appointment during the next 1-2 days.See the doctor sooner or return here if your condition worsens before your appointment time. ANAND PAKRER May 04, 2017 18:44
== END 2017-05-04 17:52 | disposition home or self-care (01) ==
LOC: FTE 14:49
DX: R07.9 Chest pain, unspecified (principal); E11.9 Type 2 diabetes mellitus without complications; Z79.82 Long term (current) use of aspirin; Z79.84 Long term (current) use of oral hypoglycemic drugs
CPT/HCPCS: 36415; 71010; 80053; 83690; 84484; 85025; 93005; Z7502

== ENCOUNTER 2017-09-06 16:56 | Observation (INO) | END 2017-09-08 18:40 | disposition home or self-care (01) ==

== ENCOUNTER 2018-02-06 23:24 | Emergency (ER) | END 2018-02-07 02:49 | disposition left against medical advice (07) ==

== ENCOUNTER 2018-04-04 14:59 | Inpatient (IN) | END 2018-04-06 18:00 | disposition home or self-care (01) | DRG 440 ==

== ENCOUNTER 2018-11-13 14:11 | Emergency (ER) | payer MEDICAID ==
[~2018-11-13] VITALS: Ht 160 cm; Wt 65.6 kg
[~2018-11-13 14:11] MED LIST changes: -ALBU2.5V3 NEB; +ASPI-817 PO; -ASPI81TA3 PO; +GLYBURIDE/METFORMIN PO; -IBUP-1542 PO; -MTF1000T PO; +OMEG-157 PO
[2018-11-13 14:18] VITALS: BP 154/94; PULSE 64; RESP 18; Ht 160 cm; Wt 65.6 kg
[2018-11-13] MEDS ORDERED: SOD CHLORIDE 0.9% 500 ML IV STA (14:57)
[2018-11-13] MEDS ORDERED: KETOROLAC 15 MG INJ IV STA (14:57)
[2018-11-13] MEDS ORDERED: ALPRAZOLAM 0.25 MG TAB PO ONE (15:00)
--- NOTE | 2018-11-13 15:33 | ERD ---
ER Documentation Chief Complaint Chief Complaint CWP X 1 WEEK, PAIN CHANGES WITH MOVEMENT HPI This is a 38-year-old alcoholic complaining of sharp intermittent chest pain x1 week, states the pain is intermittent usually lasting for a few seconds and then resolving spontaneously. The pain is nonexertional and nonradiating. Patient denies abdominal pain, no vomiting or diarrhea, no headache or blurry vision ROS All systems reviewed and are negative except as per history of present illness. Medications Home Meds Active Scripts Naproxen* (Naprosyn*) 500 Mg Tablet, 500 MG PO BID PRN for PAIN AND/OR INFLAMMATION, #30 TAB Prov:STEPHANIE GONZALES MD 11/13/18 Reported Medications [place]-3/Dha/Epa/Fish Oil (Fish Oil 1,000 mg Softgel) 1,000 Mg Capsule, 2000 MG PO QAM, CAP 11/13/18 Discontinued Reported Medications [Glyburide/Metformin] No Conflict Check, 1 TAB PO BID TAKE 2.5MG-500MG BID 09/06/17 Aspirin* (Aspirin* EC) 81 Mg Tablet.dr, 81 MG PO DAILY, TAB 09/06/17 Discontinued Scripts [place]-3/Dha/Epa/Fish Oil (FISH OIL EC 1,000 MG SOFTGEL) 1 Each Capsule.dr, 2000 MG PO BID for 30 Days, #60 CAP 6 Refills Prov:KVNG MOHAN MD 04/06/18 Allergies Allergies: Coded Allergies: Pork/Porcine Containing Products (Verified Allergy, Mild, 11/13/18) PMhx/Soc Anxiety, diabetes mellitus, alcoholism, history of pancreatitis History of Surgery: Yes (appendectomy 20 years ago) Anesthesia Reaction: No Hx Neurological Disorder: No Hx Respiratory Disorders: No Hx Cardiac Disorders: No Hx Psychiatric Problems: No Hx Miscellaneous Medical Probl: No Hx Alcohol Use: Yes (monday, monday) Hx Substance Use: No Hx Tobacco Use: No FmHx Family History: No diabetes Physical Exam Vitals Vital Signs Date Temp Pulse Resp B/P (MAP) Pulse Ox O2 O2 Flow FiO2 Time Delivery Rate 11/13/18 98.8 64 18 154/94 99 14:18 (114) Physical Exam GENERAL: Well-developed, well-nourished, well-hydrated, in no apparent distress, looks nontoxic in appearance HEENT: Moist mucous membranes, pink conjunctiva, no cervical spine tenderness or step-off deformities, no goiter, no jaundice or icterus, extraocular movements intact without pain. No submandibular induration, and no pharyngeal erythema NEURO: Alert and oriented 3, cranial nerves II through XII intact bilaterally, pupils equal round reactive to light, no focal deficits or facial asymmetry, sensation intact distally Strength 5/5 in upper and lower extremities bilaterally CARDIAC: Regular rate and rhythm, no murmurs rubs or gallops LUNGS: Clear bilaterally no wheezing crackles or stridor ABDOMEN: Soft nontender, no guarding, no rigidity, no rebound, no psoas sign no obturator sign. Normoactive bowel sounds SKIN: Warm and dry to touch, no abrasions, contusions, or hematomas, no lacerations, no ecchymosis, no target lesions, and without ulcers EXTREMITIES: No clubbing cyanosis or edema, calves are bilaterally symmetrical, no Homans sign, no popliteal cord sign. Distal pulses equal and bilateral PSYCH: Normal affect without agitation or irritability Result Diagram: 11/13/18 1522 11/13/18 1522 Results 24 hrs Laboratory Tests Test 11/13/18 15:22 White Blood Count 8.2 10^3/ul Red Blood Count 4.54 10^6/ul Hemoglobin 14.7 g/dl Hematocrit 42.4 % Mean Corpuscular Volume 93.4 fl Mean Corpuscular Hemoglobin 32.4 pg Mean Corpuscular Hemoglobin Concent 34.7 g/dl Red Cell Distribution Width 12.9 % Platelet Count 282 10^3/UL Mean Platelet Volume 10.0 fl Immature Granulocytes % 0.200 % Neutrophils % 47.7 % Lymphocytes % 37.3 % Monocytes % 9.9 % Eosinophils % 4.3 % Basophils % 0.6 % Nucleated Red Blood Cells % 0.0 /100WBC Immature Granulocytes # 0.020 10^3/ul Neutrophils # 3.9 10^3/ul Lymphocytes # 3.0 10^3/ul Monocytes # 0.8 10^3/ul Eosinophils # 0.4 10^3/ul Basophils # 0.1 10^3/ul Nucleated Red Blood Cells # 0.0 10^3/ul Sodium Level 140 mmol/L Potassium Level 3.9 mmol/L Chloride Level 103 mmol/L Carbon Dioxide Level 26 mmol/L Anion Gap 11 Blood Urea Nitrogen 9 mg/dl Creatinine 0.63 mg/dl Est Glomerular Filtrat Rate mL/min > 60 mL/min Glucose Level 106 mg/dl Calcium Level 8.7 mg/dl Total Bilirubin 0.7 mg/dl Direct Bilirubin 0.00 mg/dl Indirect Bilirubin 0.7 mg/dl Aspartate Amino Transf (AST/SGOT) 47 IU/L Alanine Aminotransferase (ALT/SGPT) 45 IU/L Alkaline Phosphatase 88 IU/L Troponin I < 0.012 ng/ml Total Protein 7.9 g/dl Albumin 4.2 g/dl Globulin 3.70 g/dl Albumin/Globulin Ratio 1.13 Lipase 251 U/L Current Medications Medications Dose Sig/Kevin Start Time Status Last (Trade) Ordered Route PRN Stop Time Admin Dose Reason Admin Sodium 500 ml @ Q1H STAT 11/13/18 DC 11/13/18 Chloride 500 mls/hr IV 14:57 15:30 11/13/18 15:56 Ketorolac 15 mg ONCE STAT 11/13/18 DC 11/13/18 Tromethamine IV 14:57 15:30 (Toradol) 11/13/18 14:58 Alprazolam 0.5 mg ONCE ONCE 11/13/18 DC 11/13/18 (Xanax) PO 15:00 15:29 11/13/18 15:01 Procedures/MDM IV line was established patient was placed on telemetry monitor rhythm strip revealed a sinus rhythm at about 60 bpm with upright P and T waves. Patient was afebrile one AP view of the chest performed, read by me reveals no acute infiltrates, normal mediastinum, sharp costophrenic and cardiac borders, no air under the diaphragm. Otherwise unremarkable chest x-ray. EKG performed, read by me revealed a normal sinus rhythm at 64 bpm, normal axis, narrow QRS complex, no concerning ST elevations or depressions noted I administered 500 cc normal saline IV, alprazolam 0.5 mg p.o., Toradol 15 mg IV CBC and electrolytes are normal, liver function tests were normal, troponin was negative Differential diagnoses considered, included but not limited to acute coronary syndrome, pulmonary embolism, aortic dissection, abdominal aortic aneurysm, sep sis, stroke, meningitis, encephalitis, pneumonia, appendicitis, cholecystitis, bowel obstruction, pyelonephritis, nephrolithiasis, cystitis, as well as metabolic, hematologic, and electrolyte abnormalities. As well as abscess, cellulitis, fractures, and dislocations. Patient feels much better at this time, and vital signs are normal, symptoms have improved. I did give strict instructions to return to the ED if symptoms continue or worsen, patient will otherwise follow-up with primary care physi maria luisa. Patient understood instructions and agreed to plan. Disclaimer: Inadvertent spelling and grammatical errors are likely due to EHR/dictation software use and do not reflect on the overall quality of patient care. Also, please note that the electronic time recorded on this note does not necessarily reflect the actual time of the patient encounter. Departure Diagnosis: Primary Impression: Chest pain Chest pain type: unspecified Qualified Codes: R07.9 - Chest pain, unspecified Condition: STEPHANIE Hernández MD Nov 13, 2018 15:33
[2018-11-13] MEDS ORDERED: OMEG100024 PO (15:57)
[2018-11-13] MEDS ORDERED: NAPR-985 PO (16:11)
== END 2018-11-13 16:55 | disposition home or self-care (01) ==
LOC: E/R 14:11
DX: R07.89 Other chest pain (principal); E11.9 Type 2 diabetes mellitus without complications
CPT/HCPCS: 36415; 71045; 80053; 83690; 84484; 85025; 93005; 96374; J1885; J7040; Z7502; Z7610

== ENCOUNTER 2019-01-15 01:43 | Emergency (ER) | payer MEDICAID ==
[~2019-01-15] VITALS: Ht 167.6 cm; Wt 70.3 kg
[~2019-01-15 01:43] MED LIST changes: -ASPI-817 PO; -GLYBURIDE/METFORMIN PO; +HYDR-4011 PO; +IBUP-1542 PO; +NAPR-985 PO; -OMEG-157 PO; +OMEG100024 PO; +OMEP20CA16 PO; +ONDA4TAB14 PO
[2019-01-15 01:58] VITALS: Ht 167.6 cm; Wt 70.3 kg
[2019-01-15] MEDS ORDERED: morphine 2 MG INJ IV STA (02:39)
[2019-01-15] MEDS ORDERED: FAMOTIDINE 20 MG TAB PO STA (02:39)
[2019-01-15] MEDS ORDERED: ONDANSETRON 4 MG INJ IV STA (02:39)
[2019-01-15] MEDS ORDERED: SOD CHLORIDE 0.9% 1,000 ML IV STA (02:39)
[2019-01-15] MEDS ORDERED: LIDOCAINE/MYLANTA 40 ML BTL PO STA (02:39)
[2019-01-15] MEDS ORDERED: DICYCLOMINE 10 MG CAP PO ONE (03:00)
[2019-01-15] MEDS ORDERED: METOCLOPRAMIDE 10 MG INJ IV ONE (04:00)
[2019-01-15 04:06] VITALS: BP 119/87; PULSE 55; RESP 18
== END 2019-01-15 05:16 | disposition home or self-care (01) ==
LOC: FTE 01:43
DX: R10.11 Right upper quadrant pain (principal)
CPT/HCPCS: 36415; 76705; 80053; 83690; 85025; 96374; 96375; J2270; J2405; J2765; J7030; Z7502; Z7610

== ENCOUNTER 2019-02-07 06:16 | Emergency (ER) | payer MEDICAID ==
[~2019-02-07] VITALS: Ht 167.6 cm; Wt 69.9 kg
[2019-02-07 06:20] VITALS: Ht 167.6 cm; Wt 69.9 kg
[2019-02-07] MEDS ORDERED: morphine 2 MG INJ IV STA (09:59)
[2019-02-07] MEDS ORDERED: KETOROLAC 30 MG INJ IV STA (09:59)
[2019-02-07] MEDS ORDERED: ONDANSETRON 4 MG INJ IV STA (09:59)
[2019-02-07] MEDS ORDERED: SOD CHLORIDE 0.9% 1,000 ML IV STA (09:59)
[2019-02-07 11:13] VITALS: BP 137/86; PULSE 58; RESP 18
== END 2019-02-07 11:15 | disposition home or self-care (01) ==
LOC: FTE 06:16
DX: K85.90 Acute pancreatitis without necrosis or infection, unspecified (principal)
CPT/HCPCS: 36415; 74176; 76705; 80053; 81003; 83690; 85025; 96374; 96375; J1885; J2270; J2405; J7030; Z7502